=== PATIENT | female | born 1960 | race Caucasian/White ===

== ENCOUNTER 2019-09-10 16:43 | Observation (INO) | payer BC ==
[~2019-09-10] VITALS: Ht 167.6 cm; Wt 76.5 kg
[~2019-09-10 16:43] MED LIST: CALCA500CH PO; LOSARTAN POTAS100 MG PO; LOVA20 PO; MINIVELLE PATCH; MULTIVITAMIN; NAPR550 PO; OMEG1CAP30 PO; PROGESTERONE200 MG PO; RXNAPNA550 PO; RXTRAM50 PO; TRAM50 PO; UBID100 PO; VITAMIN D33000 UNIT PO
[2019-09-10 17:47] LABS: BASOPHILS ABSOLUTE AUTO 0.04 K/mm3 (0.00-0.23); BASOPHILS PERCENT AUTO 0 % (0-2); EOSINOPHILS ABSOLUTE AUTO 0.25 K/mm3 (0.00-0.68); EOSINOPHILS PERCENT AUTO 2 % (0-6); Hematocrit 41.3 % (33.0-51.0); IMMATURE GRAN ABSOLUTE AUTO 0.01 K/mm3 (0.00-0.10); IMMATURE GRAN PERCENT AUTO 0 % (0-1); LYMPHOCYTES PERCENT AUTO 29 % (21-46); MONOCYTES ABSOLUTE AUTO 0.55 K/mm3 (0.16-1.47); MONOCYTES PERCENT AUTO 5 % (4-13); Mean Corpuscular HGB 32.1 pg (26.0-34.0); Mean Corpuscular HGB Conc 33.9 g/dL (31.5-36.5); Mean Corpuscular Volume 95 fL (80-100); Mean Platelet Volume 9.6 fL (9.1-12.4); NEUTROPHILS ABSOLUTE AUTO 6.45 K/mm3 (1.96-9.15); NEUTROPHILS PERCENT AUTO 63 % (41-73); Platelet Count 322 K/mm3 (150-400); RDW Coefficient Variation 12.3 % (11.7-14.2); RDW Standard Deviation 42.9 fL (35.1-46.3); Red Blood Cell Count 4.36 M/mm3 (3.80-5.20)
[2019-09-10 18:09] LABS: Alanine Aminotransfer (ALT/SGP 44 U/L (12-78); Albumin, Blood 4.2 g/dL (3.4-5.0); Albumin/Globulin Ratio 1.2 (0.8-1.8); Alk Phos 80 U/L (50-136); Anion Gap 6 mmol/L (6-16); Aspartate Aminotrans (AST/SGOT 21 U/L (12-37); Bilirubin, Total 0.4 mg/dL (0.1-1.0); Blood Urea Nitrogen 11 mg/dL (8-24); Bun/Creatinine Ratio 21.1 (12.0-20.0); CO2, Blood 27 mmol/L (21-32); Chloride, Blood 99 mmol/L (98-108); Creatinine, Blood 0.52 mg/dL (0.40-1.00); Globulin, Blood 3.5 g/dL (2.2-4.0); Glomerular Filtration Rate >60 (60-); Glucose, Blood 112 mg/dL (70-99); Potassium, Blood 3.5 mmol/L (3.5-5.5); Sodium, Blood 132 mmol/L (136-145); Total Protein, Blood 7.7 g/dL (6.4-8.2); Troponin I <0.015 ng/mL (0.000-0.040)
[2019-09-10] MEDS ORDERED: Co Q-10300 MG PO (18:26)
[2019-09-10] MEDS ORDERED: ASCO500 PO (18:27)
[2019-09-10] MEDS ORDERED: Fish Oil Conc1000 MG PO (18:27)
[2019-09-10] MEDS ORDERED: ESTR2 PO (18:28)
[2019-09-10] MEDS ORDERED: CALCIUM 600 +1 EA11 PO (18:28)
[2019-09-10] MEDS ORDERED: RED YEAST RICE600 MG PO (22:46)
[2019-09-10] MEDS ORDERED: Cinnamon500 MG PO (22:47)
[2019-09-11 00:03] LABS: Creatine Kinase MB 5.1 ng/mL (0.0-3.6); Creatine Kinase MB Index 6.5 (0.0-4.0)
[2019-09-11 00:05] LABS: Troponin I 0.561 ng/mL (0.000-0.040)
--- NOTE | 2019-09-11 00:26 | NUR ---
CRITICAL TROPONIN PT TROPONIN 0.561. PT STILL COMPLAINING OF CHEST PAIN AT THIS TIME, BUT STATES IMPROVED AFTER FENTANYL GIVEN AT 2227 PAIN FROM 7 TO 2-3 NOW. COMPOSITE TECHNICIAN MICHAEL COY AND DR. WOOD NOTIFIED OF CRITICAL TROPONIN AND THAT PT STILL HAS CHEST PAIN THAT IT IS IMPROVED PER HER REPORT 2-3. NO NEW ORDERS WERE GIVEN. HE STATES JUST TO WATCH FOR NOW. PT NSR 72 ON TELE WITH NO CARDIC EVENTS. PT RESTING IN BED COMFORTABLY NOT APPEARING DISTRESS. WILL CONTINUE TO MONITOR.
--- NOTE | 2019-09-11 01:21 | NUR ---
CRTITCAL TROPONIN EKG DONE AND VITALS WERE OBTAINED. EKG IS WNL, AND VITALS ARE STABLE. PT CONTINUES TO REPORT CHEST PAIN UNCHANGED AND STATES NOT BAD. CHEST PAIN 2-3 (0-10) SCALE. DULL ACHE, CONSTANT THAT RADIATES TO BACK. PT RESTING IN BED WITHOUT ACUTE S/S OF DITRESS. WILL CONTINUE TO MONITOR.
--- NOTE | 2019-09-11 03:15 | NUR ---
CRTIICAL TROPONIN PT CONTINUES TO REST COMFORTABLY. AND CONTINUES TO REPORT THAT HER PAIN IS BETTER 2 (0-10) PAIN. NO ACUTE CHANGES.
--- NOTE | 2019-09-11 06:35 | NUR ---
SHIFT SUMMARY PT ER ADMIT THIS SHIFT FOR CHEST PAIN. WHEN ARRIVING TO THE UNIT SHE COMPLAINED OF 7 (0-10). SHE STATES DULL, ACHY AND CONSTANT THAT RADIATES TO HER BACK. MEDICATED WITH X1 DOSE OF FENTANYL WHICH BROUGHT PT PAIN DOWN TO 2. SINCE RECEIVING FENTANYL PT PAIN GRADUALLY WENT DOWN FROM A 3 TO A 2. 2330 TROPON[address] HIGH. DR[address] WOOD CALLED AND NOTIFIED OF TROPONIN AND OF PT CONTINUED CHEST PAIN. EKG PERFROMED WITH NO CHANGES FROM EKG TAKEN IN ER. DR. BECKFORD. NO ADDITIONAL ORDERS WERE GIVEN RELATED TO TROPONIN. VITALS ARE STABLE AND PT NSR ON TELE. PT IS WITHOUT N/V. SKIN IS WARM AND DRY. SHE DENIES SOB. AMBULATES INDEPENDENTLY IN THE ROOM WITHOUT DIFFICULTY. ASSESSMENT UNCHANGED. BED IN LOWEST POSITION. WILL CONTINUE TO MONITOR AND REPORT TO ONCOMING RN.
[2019-09-11 07:41] LABS: BASOPHILS ABSOLUTE AUTO 0.03 K/mm3 (0.00-0.23); BASOPHILS PERCENT AUTO 0 % (0-2); EOSINOPHILS ABSOLUTE AUTO 0.23 K/mm3 (0.00-0.68); EOSINOPHILS PERCENT AUTO 3 % (0-6); Hematocrit 40.8 % (33.0-51.0); Hemoglobin 13.9 g/dL (11.5-16.0); IMMATURE GRAN ABSOLUTE AUTO 0.02 K/mm3 (0.00-0.10); IMMATURE GRAN PERCENT AUTO 0 % (0-1); LYMPHOCYTES ABSOLUTE AUTO 2.11 K/mm3 (0.84-5.20); LYMPHOCYTES PERCENT AUTO 29 % (21-46); MONOCYTES PERCENT AUTO 7 % (4-13); Mean Corpuscular HGB 32.3 pg (26.0-34.0); Mean Corpuscular HGB Conc 34.1 g/dL (31.5-36.5); Mean Corpuscular Volume 95 fL (80-100); Mean Platelet Volume 9.3 fL (9.1-12.4); NEUTROPHILS ABSOLUTE AUTO 4.44 K/mm3 (1.96-9.15); NEUTROPHILS PERCENT AUTO 61 % (41-73); Platelet Count 303 K/mm3 (150-400); RDW Coefficient Variation 12.5 % (11.7-14.2); RDW Standard Deviation 43.5 fL (35.1-46.3); Red Blood Cell Count 4.31 M/mm3 (3.80-5.20); White Blood Cell Count 7.33 K/mm3 (4.00-11.30)
[2019-09-11 08:05] LABS: Anion Gap 6 mmol/L (6-16); Blood Urea Nitrogen 11 mg/dL (8-24); Bun/Creatinine Ratio 15.9 (12.0-20.0); CHOL/HDL RATIO 3.5; CO2, Blood 26 mmol/L (21-32); Calcium, Blood 9.3 mg/dL (8.5-10.1); Chloride, Blood 106 mmol/L (98-108); Cholesterol 162 mg/dL (50-200); Creatinine, Blood 0.69 mg/dL (0.40-1.00); Glomerular Filtration Rate >60 (60-); Glucose, Blood 101 mg/dL (70-99); HDL Cholesterol 46 mg/dL (>39); LDL/HDL RATIO 1.8; Low Density Lipoprotein Chol 85 mg/dL (0-110); Potassium, Blood 4.3 mmol/L (3.5-5.5); Sodium, Blood 138 mmol/L (136-145); Triglycerides 156 mg/dL (30-160); Very Low Density Lipoprot Chol 31 mg/dL (6-32)
[2019-09-11 08:11] LABS: Creatine Kinase MB 8.4 ng/mL (0.0-3.6); Creatine Kinase MB Index 8.2 (0.0-4.0)
[2019-09-11 08:14] LABS: Troponin I 1.82 ng/mL (0.000-0.040)
[2019-09-11 09:05] LABS: International Normalized Ratio 1.01; Prothrombin Time Results 10.8 Sec (9.7-11.5)
--- NOTE | 2019-09-11 14:29 | NUR ---
PATIENT TO [facility]ART [facility]ENTER FOR ANGIOGRAM VIA W/C.
--- NOTE | 2019-09-11 17:06 | NUR ---
2ML OF THE 11ML OF AIR REMOVED FROM TR BAND. PULSES INTACT, STRONG, GOOD ROM OF FINGERS, NO ACTIVE BLEEDING NOTED FROM SITE. WILL CONTINUE TO REMOVE AIR FROM TR BAND AND MONITOR FOR BLEEDING. VSS. PT RESTING WELL IN BED
--- NOTE | 2019-09-11 17:11 | NUR ---
4ML TOTAL OF AIR REMOVED FROM TR BAND, NO ACTIVE BLEEDING FROM SITE. PULSES REMAIN IN TACT PT UP TO BATHROOM
--- NOTE | 2019-09-11 17:39 | NUR ---
SHIFT NOTE PT ARRIVED FROM CONDUCTOR PULLMAN WITH TR BAND IN PLACE WITH 11ML OF AIR. NO ACITVE BLEEDING NOTED FROM SITE. PULSES STRONG AND INTACT. PT A/O X4, INDEPENDANT IN THE ROOM. PT VISITING WITH GUESTS AT BEDSIDE. PER CONDUCTOR PULLMAN CREW PT DID NOT REQUEIRE INTERVENTION DURING ANGIO. PT HAS BEEN TO CT AND RETUREDNED, RESULTS ARE PENDING OF THE TIME OF THIS NOTE
--- NOTE | 2019-09-12 06:02 | NUR ---
SHIFT SUMMARY PT A&O; PLEASANT & COMPLIANT W/ CARE; VSS; TR BAND REMOVED APPROXIMATELY 2119; SCANT DRIED BLOOD NOTED; TEGADERM IN PLACE; ARM BOARD IN PLACE; 02 SATS >94 ON RA ON SECOND DIGIT; INDEPENDENT IN ROOM; TOOTHBRUSH & WASH CLOTH BROUGHT TO PT THIS AM; DENIES CHEST PAIN; DENIES NEEDS AT THIS TIME; CALL LIGHT IN REACH; BED IN LOWEST POSITION; WILL CONTINUE TO MONITOR CLOSELY UNTIL HAND OFF TO DAY SHIFT RN.
[2019-09-12] MEDS ORDERED: ASPI81CH PO (14:03)
[2019-09-12] MEDS ORDERED: CLOP75 PO (14:04)
[2019-09-12] MEDS ORDERED: ATOR80 PO (14:04)
--- NOTE | 2019-09-12 14:49 | NUR ---
hayder d/c by minesh GALARZA
== END 2019-09-12 14:17 | disposition home or self-care (01) ==
LOC: ER 16:43 → MEDS 16:44 → PCU 09-11 15:14
PROVIDERS: Pharmacist; Physician Assistant; ADMIT Internal Medicine
DX: I21.4 Non-ST elevation (NSTEMI) myocardial infarction (principal); I25.118 Atherosclerotic heart disease of native coronary artery with other forms of angina pectoris; I35.0 Nonrheumatic aortic (valve) stenosis; R07.9 Chest pain, unspecified; E78.5 Hyperlipidemia, unspecified; I10 Essential (primary) hypertension; Z88.5 Allergy status to narcotic agent; Z88.2 Allergy status to sulfonamides; Z79.899 Other long term (current) drug therapy; Z87.891 Personal history of nicotine dependence
CPT/HCPCS: 36415; 71046; 71275; 74175; 76937; 80048; 80053; 80061; 82550; 82553; 84484; 85025; 85379; 85610; 85730; 93005; 93010; 93306; 93454; 96372; 96374; 96375; 96376; 99152; 99153; 99285-25; A9270; A9270-GY; C1769; C1894; G0378; J1644; J2250; J2405; J3010; J7030; Q9967

== ENCOUNTER 2020-05-14 09:05 | Emergency (ER) | payer BC ==
[~2020-05-14] VITALS: Ht 167.6 cm; Wt 79.4 kg
[~2020-05-14 09:05] MED LIST changes: +ASCO500 PO; +ATOR80 PO; +Aspir 8181 MG PO; +CALCIUM 600 +1 EA11 PO; +CLOP75 PO; +Cinnamon500 MG PO; +Co Q-10300 MG PO; +ESTR2 PO; +Fish Oil Conc1000 MG PO; +LOSA50 PO; -LOSARTAN POTAS100 MG PO; +PANT20 PO; +RED YEAST RICE600 MG PO
[2020-05-14 09:22] LABS: BASOPHILS ABSOLUTE AUTO 0.03 K/mm3 (0.00-0.23); BASOPHILS PERCENT AUTO 0 % (0-2); EOSINOPHILS ABSOLUTE AUTO 0.24 K/mm3 (0.00-0.68); EOSINOPHILS PERCENT AUTO 2 % (0-6); Hematocrit 41.4 % (33.0-51.0); Hemoglobin 14.3 g/dL (11.5-16.0); IMMATURE GRAN ABSOLUTE AUTO 0.04 K/mm3 (0.00-0.10); IMMATURE GRAN PERCENT AUTO 0 % (0-1); LYMPHOCYTES ABSOLUTE AUTO 2.41 K/mm3 (0.84-5.20); LYMPHOCYTES PERCENT AUTO 24 % (21-46); MONOCYTES ABSOLUTE AUTO 0.74 K/mm3 (0.16-1.47); MONOCYTES PERCENT AUTO 8 % (4-13); Mean Corpuscular HGB 32.1 pg (26.0-34.0); Mean Corpuscular HGB Conc 34.5 g/dL (31.5-36.5); Mean Corpuscular Volume 93 fL (80-100); Mean Platelet Volume 9.5 fL (9.1-12.4); NEUTROPHILS ABSOLUTE AUTO 6.46 K/mm3 (1.96-9.15); NEUTROPHILS PERCENT AUTO 65 % (41-73); Platelet Count 316 K/mm3 (150-400); RDW Coefficient Variation 12.4 % (11.7-14.2); RDW Standard Deviation 42.3 fL (35.1-46.3); Red Blood Cell Count 4.46 M/mm3 (3.80-5.20); White Blood Cell Count 9.92 K/mm3 (4.00-11.30)
[2020-05-14] MEDS ORDERED: ATOR20 PO (09:22)
[2020-05-14] MEDS ORDERED: CLOP75 PO (09:22)
[2020-05-14] MEDS ORDERED: ATOR80 PO (09:22)
[2020-05-14] MEDS ORDERED: LOSA50 PO (09:23)
[2020-05-14] MEDS ORDERED: ESTR2 PO (09:23)
[2020-05-14] MEDS ORDERED: PANT20 PO (09:25)
[2020-05-14] MEDS ORDERED: PROG100 PO (09:26)
[2020-05-14 09:46] LABS: Alanine Aminotransfer (ALT/SGP 34 U/L (12-78); Albumin, Blood 4.3 g/dL (3.4-5.0); Albumin/Globulin Ratio 1.3 (0.8-1.8); Alk Phos 95 U/L (50-136); Anion Gap 6 mmol/L (6-16); Aspartate Aminotrans (AST/SGOT 17 U/L (12-37); Bilirubin, Total 0.3 mg/dL (0.1-1.0); Blood Urea Nitrogen 12 mg/dL (8-24); Bun/Creatinine Ratio 17.2 (12.0-20.0); CO2, Blood 26 mmol/L (21-32); Calcium, Blood 9.2 mg/dL (8.5-10.1); Chloride, Blood 100 mmol/L (98-108); Globulin, Blood 3.4 g/dL (2.2-4.0); Glomerular Filtration Rate >60 (60-); Glucose, Blood 99 mg/dL (70-99); Potassium, Blood 4.1 mmol/L (3.5-5.5); Sodium, Blood 132 mmol/L (136-145); Total Protein, Blood 7.7 g/dL (6.4-8.2); Troponin I <0.015 ng/mL (0.000-0.040)
== END 2020-05-14 13:45 | disposition home or self-care (01) ==
LOC: ER 09:05
PROVIDERS: Emergency Medicine
DX: R07.89 Other chest pain (principal); R06.02 Shortness of breath; R20.0 Anesthesia of skin; Z79.02 Long term (current) use of antithrombotics/antiplatelets; Z79.3 Long term (current) use of hormonal contraceptives; Z79.899 Other long term (current) drug therapy; Z88.2 Allergy status to sulfonamides; Z88.8 Allergy status to other drugs, medicaments and biological substances; Z88.5 Allergy status to narcotic agent; Z79.82 Long term (current) use of aspirin
CPT/HCPCS: 36415; 71045; 71275; 80053; 84484; 85025; 93005; 93010; 96374; 99285-25; J2405; Q9967

== ENCOUNTER 2021-02-17 13:06 | Observation (INO) | payer BC ==
[~2021-02-17] VITALS: Ht 167.6 cm; Wt 81.4 kg
[~2021-02-17 13:06] MED LIST changes: +ATOR20 PO; +PROG100 PO
[2021-02-17 13:25] LABS: BASOPHILS ABSOLUTE AUTO 0.05 K/mm3 (0.00-0.23); BASOPHILS PERCENT AUTO 0 % (0-2); EOSINOPHILS ABSOLUTE AUTO 0.07 K/mm3 (0.00-0.68); EOSINOPHILS PERCENT AUTO 1 % (0-6); Hematocrit 39.2 % (33.0-51.0); Hemoglobin 13.8 g/dL (11.5-16.0); IMMATURE GRAN ABSOLUTE AUTO 0.02 K/mm3 (0.00-0.10); IMMATURE GRAN PERCENT AUTO 0 % (0-1); LYMPHOCYTES ABSOLUTE AUTO 2.24 K/mm3 (0.84-5.20); LYMPHOCYTES PERCENT AUTO 19 % (21-46); MONOCYTES ABSOLUTE AUTO 0.65 K/mm3 (0.16-1.47); MONOCYTES PERCENT AUTO 6 % (4-13); Mean Corpuscular HGB 32.5 pg (26.0-34.0); Mean Corpuscular HGB Conc 35.2 g/dL (31.5-36.5); Mean Corpuscular Volume 92 fL (80-100); NEUTROPHILS ABSOLUTE AUTO 8.82 K/mm3 (1.96-9.15); NEUTROPHILS PERCENT AUTO 74 % (41-73); Platelet Count 323 K/mm3 (150-400); RDW Coefficient Variation 12.2 % (11.7-14.2); RDW Standard Deviation 40.9 fL (35.1-46.3); Red Blood Cell Count 4.25 M/mm3 (3.80-5.20); White Blood Cell Count 11.85 K/mm3 (4.00-11.30)
[2021-02-17 13:45] LABS: Ethanol (Alcohol), Blood, Med <3 mg/dL
[2021-02-17 13:50] LABS: Alanine Aminotransfer (ALT/SGP 54 U/L (12-78); Alk Phos 82 U/L (50-136); Anion Gap 8 mmol/L (6-16); Aspartate Aminotrans (AST/SGOT 59 U/L (12-37); Bilirubin, Total 0.5 mg/dL (0.1-1.0); Blood Urea Nitrogen 8 mg/dL (8-24); Bun/Creatinine Ratio 12.5 (12.0-20.0); CO2, Blood 24 mmol/L (21-32); Calcium, Blood 10.3 mg/dL (8.5-10.1); Chloride, Blood 99 mmol/L (98-108); Creatinine, Blood 0.64 mg/dL (0.40-1.00); Glomerular Filtration Rate >60 (60-); Glucose, Blood 105 mg/dL (70-99); Potassium, Blood 4.2 mmol/L (3.5-5.5); Sodium, Blood 131 mmol/L (136-145)
[2021-02-17 14:12] LABS: International Normalized Ratio 1.01; Prothrombin Time Results 10.9 Sec (9.7-11.5)
[2021-02-18 04:08] LABS: Hematocrit 37.6 % (33.0-51.0); Hemoglobin 12.8 g/dL (11.5-16.0); Mean Corpuscular HGB 31.7 pg (26.0-34.0); Mean Corpuscular Volume 93 fL (80-100); Mean Platelet Volume 9.8 fL (9.1-12.4); Platelet Count 272 K/mm3 (150-400); RDW Coefficient Variation 12.2 % (11.7-14.2); RDW Standard Deviation 42.3 fL (35.1-46.3); Red Blood Cell Count 4.04 M/mm3 (3.80-5.20); White Blood Cell Count 7.67 K/mm3 (4.00-11.30)
[2021-02-18 04:30] LABS: CPK Creatine Kinase 144 U/L (26-193); Magnesium, Blood 2.2 mg/dL (1.6-2.4)
[2021-02-18 04:31] LABS: Anion Gap 4 mmol/L (6-16); Blood Urea Nitrogen 7 mg/dL (8-24); CO2, Blood 25 mmol/L (21-32); Calcium, Blood 8.9 mg/dL (8.5-10.1); Chloride, Blood 109 mmol/L (98-108); Glomerular Filtration Rate >60 (60-); Glucose, Blood 88 mg/dL (70-99); Potassium, Blood 3.7 mmol/L (3.5-5.5); Sodium, Blood 138 mmol/L (136-145)
--- NOTE | 2021-02-18 04:48 | NUR ---
SHIFT SUMMARY ASSUMED CARE OF PT AT 1900. PT IS A/OX4. HEART SOUNDS REGULAR, LUNG SOUNDS DIMINISHED T/O. PT NEUROCHECKS WERE UNEVENTFUL. PT SLEPT T/O THE NIGHT. PT WAS A 1P SBA TO BATHROOM. CALL LIGHT IN REACH, BED IN LOWEST POSTION, BED ALARM ON.
--- NOTE | 2021-02-18 07:39 | NUR ---
PT ALERT AND ORIENTED X4. NEURO WNL. PATIENT STATES "I AM FEELING BACK TO NORMAL". PUPILS EQUAL, ROUND, AND REACTIVE. 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 ABLE TO ANSWER ALL QUESTIONS APPROPRIATELY. LUNG SOUNDING CLEAR AND DIM IN BASES. TELE SHOWING SINUS WITH 1 DEGREE BLOCK AND HR 67. DENIES CHEST PAIN/PRESSURE. VITAL SIGNS STABLE. BOWEL TONES PRESENT, DENIES ABDOMINAL PAIN/NAUSEA. PERIPHERAL PULSES PALPABLE. DENIES ANY PAIN. WORRIED ABOUT HOME MEDICATIONS THIS AM. WILL DISCUSS HOME MEDS WITH DOCTOR THIS AM. CALL LIGHT IN REACH. SEIZURE PRECAUTIONS IN PLACE. WILL CONTINUE TO MONITOR.
--- NOTE | 2021-02-18 10:26 | NUR ---
PATIENT BACK FROM MRI. PREMEDICATED WITH 1MG ATIVAN PRIOR, PER DR. FERGUSON VERBAL ORDERS. PT BACK IN ROOM, ON TELE AND DENIES ANY NEEDS. CALL LIGHT IN REACH. WILL CONTINUE TO MONITOR.
[2021-02-18] MEDS ORDERED: LEVE500 PO (13:14)
--- NOTE | 2021-02-18 15:31 | NUR ---
DISCHARGE: PT DISCHARGE WNL. REVIEWED INSTRUCTIONS AND QUESTIONS ANSWERED. MEDS CALLED INTO PHARMACY. IV REMOVAL WNL. IN TO SEWER MAINTENANCE SUPERVISOR PATIENT. REVIEWED FOLLOW UP APPOINTMENTS AND EEG TESTING. PT LEFT UNIT VIA WHEELCHAIR WITH ALL PERSONAL BELONGINGS.
== END 2021-02-18 13:42 | disposition home or self-care (01) ==
LOC: ER 13:06 → PCU 13:07 → ER 18:00 → PCU 18:00 → ER 02-18 13:01 → PCU 02-18 13:01
PROVIDERS: Student in an Organized Health Care Education/Training Program; ADMIT Internal Medicine
DX: R56.9 Unspecified convulsions (principal); I35.0 Nonrheumatic aortic (valve) stenosis; I10 Essential (primary) hypertension; I25.10 Atherosclerotic heart disease of native coronary artery without angina pectoris; I25.2 Old myocardial infarction; E87.1 Hypo-osmolality and hyponatremia; E78.5 Hyperlipidemia, unspecified; Z88.5 Allergy status to narcotic agent; Z88.2 Allergy status to sulfonamides
CPT/HCPCS: 36415; 70450; 70496; 70498; 70551; 80048; 80053; 82550; 83735; 85025; 85027; 85610; 85730; 93005; 93010; 96365-59; 96375-59; 99285-25; A9270; C9113; G0378; G0480; J1953; J2060; J2765; J7030; J7120; Q9967

== ENCOUNTER 2021-05-30 17:35 | Emergency (ER) | payer BC ==
[~2021-05-30] VITALS: Ht 167.6 cm; Wt 79.4 kg
[~2021-05-30 17:35] MED LIST changes: +LEVE500 PO
[2021-05-30 18:09] LABS: BASOPHILS ABSOLUTE AUTO 0.03 K/mm3 (0.00-0.23); BASOPHILS PERCENT AUTO 0 % (0-2); EOSINOPHILS ABSOLUTE AUTO 0.11 K/mm3 (0.00-0.68); EOSINOPHILS PERCENT AUTO 1 % (0-6); Hemoglobin 14.3 g/dL (11.5-16.0); IMMATURE GRAN ABSOLUTE AUTO 0.04 K/mm3 (0.00-0.10); IMMATURE GRAN PERCENT AUTO 0 % (0-1); LYMPHOCYTES ABSOLUTE AUTO 2.55 K/mm3 (0.84-5.20); LYMPHOCYTES PERCENT AUTO 20 % (21-46); MONOCYTES ABSOLUTE AUTO 0.65 K/mm3 (0.16-1.47); MONOCYTES PERCENT AUTO 5 % (4-13); Mean Corpuscular HGB 32.2 pg (26.0-34.0); Mean Corpuscular HGB Conc 34.9 g/dL (31.5-36.5); Mean Corpuscular Volume 92 fL (80-100); Mean Platelet Volume 9.5 fL (9.1-12.4); NEUTROPHILS ABSOLUTE AUTO 9.36 K/mm3 (1.96-9.15); NEUTROPHILS PERCENT AUTO 74 % (41-73); Platelet Count 291 K/mm3 (150-400); RDW Coefficient Variation 11.9 % (11.7-14.2); Red Blood Cell Count 4.44 M/mm3 (3.80-5.20); White Blood Cell Count 12.74 K/mm3 (4.00-11.30)
[2021-05-30 18:29] LABS: Alanine Aminotransfer (ALT/SGP 46 U/L (12-78); Albumin, Blood 4.1 g/dL (3.4-5.0); Albumin/Globulin Ratio 1.1 (0.8-1.8); Alk Phos 90 U/L (50-136); Anion Gap 8 mmol/L (6-16); Aspartate Aminotrans (AST/SGOT 24 U/L (12-37); Bilirubin, Total 0.3 mg/dL (0.1-1.0); Blood Urea Nitrogen 9 mg/dL (8-24); CO2, Blood 23 mmol/L (21-32); Calcium, Blood 10.8 mg/dL (8.5-10.1); Chloride, Blood 95 mmol/L (98-108); Globulin, Blood 3.8 g/dL (2.2-4.0); Glomerular Filtration Rate >60 (60-); Glucose, Blood 108 mg/dL (70-99); Magnesium, Blood 1.9 mg/dL (1.6-2.4); Potassium, Blood 3.6 mmol/L (3.5-5.5); Sodium, Blood 126 mmol/L (136-145); Total Protein, Blood 7.9 g/dL (6.4-8.2); Troponin I <0.015 ng/mL (0.000-0.040)
== END 2021-05-30 21:10 | disposition home or self-care (01) ==
LOC: ER 17:35
PROVIDERS: Student in an Organized Health Care Education/Training Program
DX: R07.9 Chest pain, unspecified (principal); M54.6 Pain in thoracic spine; I10 Essential (primary) hypertension; I25.2 Old myocardial infarction; F17.210 Nicotine dependence, cigarettes, uncomplicated; Z88.2 Allergy status to sulfonamides; Z88.5 Allergy status to narcotic agent; Z79.899 Other long term (current) drug therapy
CPT/HCPCS: 36415; 71046; 80053; 83690; 83735; 84484; 85025; 85379; 93005; 93010; 96374; 96375; 99285-25; J2270; J2405

== ENCOUNTER → 2021-10-17 | Outpatient (CLI) | payer BC ==
[2021-10-17 16:20] LABS: BASOPHILS ABSOLUTE AUTO 0.02 K/mm3 (0.00-0.23); BASOPHILS PERCENT AUTO 0 % (0-2); EOSINOPHILS ABSOLUTE AUTO 0.08 K/mm3 (0.00-0.68); EOSINOPHILS PERCENT AUTO 1 % (0-6); Hematocrit 39.8 % (33.0-51.0); IMMATURE GRAN ABSOLUTE AUTO 0.06 K/mm3 (0.00-0.10); IMMATURE GRAN PERCENT AUTO 0 % (0-1); LYMPHOCYTES PERCENT AUTO 12 % (21-46); MONOCYTES ABSOLUTE AUTO 0.65 K/mm3 (0.16-1.47); MONOCYTES PERCENT AUTO 4 % (4-13); Mean Corpuscular HGB Conc 35.2 g/dL (31.5-36.5); Mean Corpuscular Volume 94 fL (80-100); Mean Platelet Volume 9.5 fL (9.1-12.4); NEUTROPHILS ABSOLUTE AUTO 12.39 K/mm3 (1.96-9.15); NEUTROPHILS PERCENT AUTO 83 % (41-73); Platelet Count 300 K/mm3 (150-400); RDW Coefficient Variation 12.3 % (11.7-14.2); RDW Standard Deviation 42.3 fL (35.1-46.3); Red Blood Cell Count 4.24 M/mm3 (3.80-5.20)
[2021-10-17 16:34] LABS: Anion Gap 10 mmol/L (6-16); Blood Urea Nitrogen 16 mg/dL (8-24); Bun/Creatinine Ratio 19.8 (12.0-20.0); CO2, Blood 25 mmol/L (21-32); Calcium, Blood 9.9 mg/dL (8.5-10.1); Chloride, Blood 100 mmol/L (98-108); Creatinine, Blood 0.81 mg/dL (0.40-1.00); Glomerular Filtration Rate >60 (60-); Glucose, Blood 100 mg/dL (70-99); Potassium, Blood 4.4 mmol/L (3.5-5.5); Sodium, Blood 135 mmol/L (136-145)
== END | disposition home or self-care (01) ==
LOC: LAB SHORT 16:16 → LAB 16:16
PROVIDERS: Family Medicine
DX: M54.6 Pain in thoracic spine (principal); R07.9 Chest pain, unspecified
CPT/HCPCS: 80048; 84484; 85025; 85379

== ENCOUNTER 2021-11-11 19:18 | Emergency (ER) | payer BC ==
[~2021-11-11] VITALS: Ht 167.6 cm; Wt 79.4 kg
[2021-11-11 20:00] LABS: BASOPHILS ABSOLUTE AUTO 0.05 K/mm3 (0.00-0.23); BASOPHILS PERCENT AUTO 0 % (0-2); EOSINOPHILS ABSOLUTE AUTO 0.28 K/mm3 (0.00-0.68); EOSINOPHILS PERCENT AUTO 1 % (0-6); Hematocrit 42.8 % (33.0-51.0); Hemoglobin 14.6 g/dL (11.5-16.0); IMMATURE GRAN ABSOLUTE AUTO 0.12 K/mm3 (0.00-0.10); IMMATURE GRAN PERCENT AUTO 1 % (0-1); LYMPHOCYTES ABSOLUTE AUTO 1.29 K/mm3 (0.84-5.20); LYMPHOCYTES PERCENT AUTO 6 % (21-46); MONOCYTES ABSOLUTE AUTO 0.66 K/mm3 (0.16-1.47); MONOCYTES PERCENT AUTO 3 % (4-13); Mean Corpuscular HGB 32.2 pg (26.0-34.0); Mean Corpuscular HGB Conc 34.1 g/dL (31.5-36.5); Mean Corpuscular Volume 95 fL (80-100); Mean Platelet Volume 9.7 fL (9.1-12.4); NEUTROPHILS ABSOLUTE AUTO 19.29 K/mm3 (1.96-9.15); NEUTROPHILS PERCENT AUTO 89 % (41-73); Platelet Count 307 K/mm3 (150-400); RDW Coefficient Variation 12.1 % (11.7-14.2); RDW Standard Deviation 42.5 fL (35.1-46.3); Red Blood Cell Count 4.53 M/mm3 (3.80-5.20); White Blood Cell Count 21.69 K/mm3 (4.00-11.30)
[2021-11-11 20:18] LABS: Alanine Aminotransfer (ALT/SGP 41 U/L (12-78); Albumin, Blood 3.9 g/dL (3.4-5.0); Albumin/Globulin Ratio 1.1 (0.8-1.8); Alk Phos 80 U/L (50-136); Anion Gap 8 mmol/L (6-16); Aspartate Aminotrans (AST/SGOT 23 U/L (12-37); Bilirubin, Total 0.4 mg/dL (0.1-1.0); Blood Urea Nitrogen 15 mg/dL (8-24); Bun/Creatinine Ratio 21.4 (12.0-20.0); CO2, Blood 25 mmol/L (21-32); Calcium, Blood 9.3 mg/dL (8.5-10.1); Chloride, Blood 105 mmol/L (98-108); Globulin, Blood 3.4 g/dL (2.2-4.0); Glomerular Filtration Rate >60 (60-); Glucose, Blood 112 mg/dL (70-99); Potassium, Blood 3.8 mmol/L (3.5-5.5); Sodium, Blood 138 mmol/L (136-145); Total Protein, Blood 7.3 g/dL (6.4-8.2)
[2021-11-12 00:12] LABS: Source, Urine Clean Catch
[2021-11-12 00:14] LABS: Bilirubin, Urine Neg (Neg); Blood, Urine Neg (Neg); Glucose Qualitative, Urine Neg (Neg); Ketones, Urine Neg (Neg); Leukocyte Esterase, Urine Neg (Neg); Nitrite, Urine Neg (Neg); Protein, Urine 1+ (Neg); Urobilinogen, Urine NORM (Normal)
[2021-11-12 00:15] LABS: Appearance, Urine Clear (Clear); Color, Urine Yellow (P-Yellow)
[2021-11-12] MEDS ORDERED: ONDA4ODT MM (00:54)
[2021-11-12] MEDS ORDERED: METO10 PO (00:56)
== END 2021-11-12 01:30 | disposition home or self-care (01) ==
LOC: ER 19:18
PROVIDERS: Student in an Organized Health Care Education/Training Program
DX: K52.9 Noninfective gastroenteritis and colitis, unspecified (principal); E86.0 Dehydration; R55 Syncope and collapse; M54.6 Pain in thoracic spine; Z88.2 Allergy status to sulfonamides; Z88.5 Allergy status to narcotic agent; Z88.8 Allergy status to other drugs, medicaments and biological substances; Z79.899 Other long term (current) drug therapy; I10 Essential (primary) hypertension; I25.2 Old myocardial infarction; F17.210 Nicotine dependence, cigarettes, uncomplicated
CPT/HCPCS: 71045; 74176; 80053; 84484; 85025; 93005; 93010; 96374; 96375; 99284-25; A9270; J2405; J3475

== ENCOUNTER 2022-11-27 06:42 | Day surgery (SDC) | payer OTHER ==
[2022-11-27] VITALS (8 sets, daily range): BP systolic 117–140; BP diastolic 70–107
[~2022-11-27] VITALS: Ht 167.6 cm; Wt 84.0 kg
[~2022-11-27 06:42] MED LIST changes: +ESTRADIOL1 MG PO; +METO10 PO; +ONDA4ODT MM
--- NOTE | 2022-11-27 08:38 | NUR ---
PATIENT ARRIVED SITTING UPRIGHT IN RECLINER. PATIENT CONVERSING APPROPRIATELY, DENYING PAIN. R RADIAL TR BAND FULLY INFLATE, SITE C/D/I SOFT/NONTENDER, NO EVIDENCE OF HEMATOMA. GOOD PLEUTH WAVE. VSS ON ROOM AIR. PRESENT AT BEDSIDE.
--- NOTE | 2022-11-27 09:44 | NUR ---
PATIENT TOLERATING PO INTAKE WELL. PATIENT DENYING ANY CHEST PAIN. VSS ON ROOM AIR.
--- NOTE | 2022-11-27 10:00 | NUR ---
3 CC OF AIR REMOVED FROM R RADIAL TR BAND. SITE C/D/I SOFT/NONTENDER, NO EVIDENCE OF HEMATOMA. GOOD PLEUTH WAVE. PATIENT DNEYING ANY PAIN. VSS ON ROOM AIR.
--- NOTE | 2022-11-27 10:30 | NUR ---
ALL AIR REMVOED FROM R RADIAL TR BAND. SITE C/D/I SOFT/NONTENDER, NO EVIDENCE OF HEMATOMA. GOOD PLEUTH WAVE. PATIENT DENYING ANY PAIN. VSS ON ROOM AIR.
--- NOTE | 2022-11-27 11:00 | NUR ---
PATIENT DISCHARGE INSTURCTIONS REVIEWED WITH PATIENT AND SPOUSE AT BEDSIDE. FOLLOW UP APPOINTMENT SCHEDULED. NO CHANGES TO MEDICATIONS. CLOTH DOT APPLIED TO R RADIAL SITE. AREA C/D/I, SOFT/NONTENDER, NO EVIDENCE OF HEMATOMA. VSS ON ROOM AIR. PIV REMOVED WITHOUT DIFFICULTY, CATHETER INTACT. PATIENT AMBULATING TO RESTROOM WITHOUT DIFFICULTY.
--- NOTE | 2022-11-27 11:15 | NUR ---
PATIENT DISCHARGED HOME AT THIS TIME. ALL PATIENT BELONGINGS AND PAPERWORK LEFT WITH PATIENT. PATIENT WHEELED TO HOSPITAL ENTRANCE. SPOUSE ABLE TO TRANSPORT PATIENT HOME.
== END 2022-11-27 11:15 | disposition home or self-care (01) ==
LOC: MHTC 06:42
DX: I25.118 Atherosclerotic heart disease of native coronary artery with other forms of angina pectoris (principal); I35.0 Nonrheumatic aortic (valve) stenosis; I10 Essential (primary) hypertension; Z88.2 Allergy status to sulfonamides; Z88.5 Allergy status to narcotic agent; E78.5 Hyperlipidemia, unspecified
CPT/HCPCS: 76937; 93454; 99152; 99153; A9270; C1769; C1894; J1644; J2250; J3010; J7030; J7050; Q9967

== ENCOUNTER 2024-01-22 07:13 | Day surgery (SDC) | payer OTHER ==
[~2024-01-22] VITALS: Ht 167.6 cm; Wt 89.2 kg
[~2024-01-22 07:13] MED LIST changes: +LOSA25 PO; +Lactated Ringer's 1,000 ML IV ONE; +METF500 PO; +METO25ER PO; +Ropivacaine 0.5% HCL/PF 5 MG/ML 30ML Vial ONE
[2024-01-22] MEDS ORDERED: CeFAZolin Sodium 2,000 MG VIAL ONE ×2 (07:28→07:50)
[2024-01-22] MEDS ORDERED: NS 0 ML IV ONE (07:29)
[2024-01-22] MEDS ORDERED: ATOR10 PO (07:49)
[2024-01-22] MEDS ORDERED: NS 50 ML IV ONE (07:50)
[2024-01-22] MEDS ORDERED: PANTOPRAZOLE SO40 M2 PO (07:51)
[2024-01-22] MEDS ORDERED: LOSARTAN POTASS25 M2 PO (07:51)
[2024-01-22] MEDS ORDERED: Lactated Ringer's 1,000 ML IV ONE (07:52)
[2024-01-22 08:23] LABS: Hematocrit 34.5 % (33.0-51.0); Hemoglobin 11.5 g/dL (11.5-16.0); Mean Corpuscular HGB Conc 33.3 g/dL (31.5-36.5); Mean Corpuscular Volume 90 fL (80-100); Mean Platelet Volume 9.5 fL (9.1-12.4); Platelet Count 213 K/mm3 (150-400); RDW Standard Deviation 42.5 fL (35.1-46.3); Red Blood Cell Count 3.83 M/mm3 (3.80-5.20); White Blood Cell Count 7.03 K/mm3 (4.00-11.30)
[2024-01-22] MEDS ORDERED: FentaNYL Citrate 50 MCG/ML 2 ML Injection ONE (08:36)
[2024-01-22] MEDS ORDERED: Ondansetron HCl 2 MG / ML 2ML Vial ONE (08:36)
[2024-01-22] MEDS ORDERED: propofoL 20 ML IV ONE (08:36)
[2024-01-22 08:40] LABS: Calcium, Blood 8.3 mg/dL (8.5-10.1); Creatinine, Blood 0.61 mg/dL (0.40-1.00); Potassium, Blood 4.4 mmol/L (3.5-5.5)
--- NOTE | 2024-01-22 08:44 | NUR ---
01/22/24 0844 Lisa Davison BLOOD SAMPLE SENT TO LAB PER ANESTHESIA AT 0810
[2024-01-22] MEDS ORDERED: ePHEDrine Sulfate 50 MG/ML 1ML Injection ONE (08:50)
[2024-01-22] MEDS ORDERED: Dexamethasone Sod Phos 10 MG/ML 1ML VIAL ONE (09:07)
[2024-01-22 10:17] VITALS: BP 142/76
== END 2024-01-22 10:13 | disposition home or self-care (01) ==
LOC: ORSCSDS 07:13
PROVIDERS: Surgery
PROC: 0JB70ZZ Excision of Back Subcutaneous Tissue and Fascia, Open Approach (ICD-10-PCS; principal; 2024-01-22 08:30)
DX: D17.1 Benign lipomatous neoplasm of skin and subcutaneous tissue of trunk (principal); I10 Essential (primary) hypertension; E78.2 Mixed hyperlipidemia; E11.9 Type 2 diabetes mellitus without complications; Z79.82 Long term (current) use of aspirin; Z79.899 Other long term (current) drug therapy; Z79.84 Long term (current) use of oral hypoglycemic drugs; Z87.891 Personal history of nicotine dependence
CPT/HCPCS: 80048; 82947; 85027; 88304; J0690; J1100; J2405; J2704; J2795; J3010; J7120